=== PATIENT | female | born 1980 | race Caucasian/White ===

== ENCOUNTER 2017-06-03 10:39 | Emergency (ER) | payer MEDICARE, MEDICAID ==
[~2017-06-03] VITALS: Ht 165.1 cm; Wt 62.0 kg
[2017-06-03 10:40] VITALS: BP 127/83
== END 2017-06-03 11:56 | disposition left against medical advice (07) ==
LOC: M ED 11:55
DX: M54.9 Dorsalgia, unspecified (principal); Z53.29 Procedure and treatment not carried out because of patient's decision for other reasons

== ENCOUNTER 2017-06-23 14:14 | Emergency (ER) | payer MEDICARE, MEDICAID ==
[~2017-06-23] VITALS: Ht 165.1 cm; Wt 64.1 kg
[2017-06-23] MEDS ORDERED: EFFE37.527 (14:19)
[2017-06-23] MEDS ORDERED: XANA0.25 (14:19)
[2017-06-23] MEDS ORDERED: MARI5CAP (14:19)
[2017-06-23] MEDS ORDERED: ADACEL/BOOSTRIX VACCINE (DIPHTH/PERTUSS/ACELL/TETANUS)0.5ML SYR (90715) IM ONE (16:30)
[2017-06-23] MEDS ORDERED: IBUP-1022 PO (16:44)
[2017-06-23 17:03] VITALS: BP 106/64
--- NOTE | 2017-06-23 19:00 | REP ---
RIGHT LOWER LEG, AP AND LATERAL: There is no evidence of an acute fracture, dislocation or intrinsic bone disease. IMPRESSION: No fracture or dislocation. Signed by Robinson Holman MD 06/24/2017 05:19 P
== END 2017-06-23 17:04 | disposition home or self-care (01) ==
LOC: M ED 14:14
DX: S81.811A Laceration without foreign body, right lower leg, initial encounter (principal); Z72.0 Tobacco use; W19.XXXA Unspecified fall, initial encounter; Y92.89 Other specified places as the place of occurrence of the external cause; Y93.89 Activity, other specified; Y99.9 Unspecified external cause status

== ENCOUNTER 2021-02-19 09:58 | Emergency (ER) | payer MEDICARE, MEDICAID ==
[~2021-02-19] VITALS: Ht 165.1 cm; Wt 65.0 kg
[2021-02-19 09:58] VITALS: BP 155/92
[~2021-02-19 09:58] MED LIST: EFFE37.5; IBUP-1022 PO; MARI5CAP; XANA0.25
[2021-02-19] MEDS ORDERED: EFFE150C2 (10:16)
[2021-02-19] MEDS ORDERED: ABIL20TA5 (10:16)
[2021-02-19] MEDS ORDERED: NICO7DIS30 (10:16)
[2021-02-19] MEDS ORDERED: AUGM875T28 PO (12:01)
== END 2021-02-19 12:06 | disposition home or self-care (01) ==
LOC: M ED 09:58
DX: J01.90 Acute sinusitis, unspecified (principal); R07.0 Pain in throat; R05 Cough; F17.200 Nicotine dependence, unspecified, uncomplicated; Z79.899 Other long term (current) drug therapy

== ENCOUNTER → 2021-02-27 | Outpatient (REF) | payer MEDICARE, MEDICAID ==
[~2021-02-27] MED LIST changes: +ABIL20TA5; +AUGM875T28 PO; +EFFE150C2; +NICO7DIS30
== END ==
LOC: M WUC 15:53
PROVIDERS: ATTEND Physician Assistant
DX: R30.0 Dysuria (principal)

== ENCOUNTER → 2022-10-07 | Outpatient (CLI) | payer OTHER, MEDICAID ==
[2022-10-07 10:21] LABS: BASO # 0.1 10^3/uL (0.0-0.2); EOS # 0.1 10^3/uL (0.0-0.5); EOS % 0.8 % (0.0-3.0); HEMATOCRIT 43.4 % (36.0-47.0); HEMOGLOBIN 14.3 g/dl (12.0-15.5); LYMPH # 2.1 10^3/uL (1.5-5.0); LYMPH % 14.8 % (24.0-44.0); MEAN CORPUSCULAR HEMOGLOBIN 29.7 pg (27.0-33.0); MEAN CORPUSCULAR HGB CONC 32.9 g/dl (32.0-36.5); MONO # 1.2 10^3/uL (0.0-0.8); MONO % 8.4 % (2.0-8.0); NEUTROPHILS # 10.7 10^3/uL (1.5-8.5); NEUTROPHILS % 74.6 % (36.0-66.0); PLATELET COUNT, AUTOMATED 266 10^3/uL (150-450); RED BLOOD COUNT 4.82 10^6/uL (4.00-5.40); WHITE BLOOD COUNT 14.4 10^3/uL (4.0-10.0)
[2022-10-07 10:55] LABS: ALKALINE PHOSPHATASE 72 U/L (46-116); ALT/SGPT 26 U/L (7.0-40); AST/SGOT 24 U/L (<34); BILIRUBIN,DIRECT < 0.1 MG/DL (<0.4); BILIRUBIN,TOTAL 0.3 MG/DL (0.3-1.2); BLOOD UREA NITROGEN 13 MG/DL (9-23); CALCIUM LEVEL 9.2 MG/DL (8.5-10.1); CARBON DIOXIDE LEVEL 24 MMOL/L (20-31); CHLORIDE LEVEL 106 MMOL/L (98-107); CHOLESTEROL LEVEL 163 MG/DL (<200); CHOLESTEROL RISK RATIO 2.98 (<5); GLOMERULAR FILTRATION RATE > 60.0 (>58); GLUCOSE, FASTING 83 MG/DL (60-100); GLUCOSE,RANDOM 83 MG/DL (LESS THAN 200); HDL CHOLESTEROL 54.6 MG/DL (>40); LDL CHOLESTEROL 95.2 MG/DL (<100); NON-HDL-C 108 MG/DL; PHOSPHORUS LEVEL 4.1 MG/DL (2.5-4.9); POTASSIUM SERUM 4.6 MMOL/L (3.5-5.1); SODIUM LEVEL 136 MMOL/L (136-145); TOTAL PROTEIN 6.9 G/DL (5.7-8.2); TRIGLYCERIDES LEVEL 66 MG/DL (<150)
[2022-10-07 11:28] LABS: THYROID STIMULATING HORMONE 1.233 uIU/ML (0.55-4.78); TOTAL 25(OH) VITAMIN D 39.6 NG/ML (20.0-100.0)
== END ==
LOC: M LAB 09:45
PROVIDERS: ATTEND Registered Nurse
DX: Z51.81 Encounter for therapeutic drug level monitoring (principal); Z79.899 Other long term (current) drug therapy; F25.0 Schizoaffective disorder, bipolar type; Z13.6 Encounter for screening for cardiovascular disorders; Z13.1 Encounter for screening for diabetes mellitus; E55.9 Vitamin D deficiency, unspecified